=== PATIENT | female | born 1955 | race Caucasian/White ===

== ENCOUNTER → 2016-10-23 | Outpatient (CLI) | payer BC | END | disposition home or self-care (01) | LOC: RAD.S 09-11 08:30 | DX: N20.1 Calculus of ureter (principal); I87.8 Other specified disorders of veins ==

== ENCOUNTER → 2016-10-28 | Outpatient (CLI) | payer BC | END | disposition home or self-care (01) | LOC: RAD.S 09:44 | DX: N63 Unspecified lump in breast (principal) ==